=== PATIENT | male | born 1995 | race Caucasian/White ===

== ENCOUNTER 2016-11-23 22:37 | Emergency (ER) | payer BC ==
--- NOTE | 2016-11-23 23:10 | EDPHY ---
H & P Stated Complaint: Nausea, malaise, chills, fever x 2days Time Seen by Provider: 11/23/16 23:08 HPI/ROS: CHIEF COMPLAINT: Fever, body aches, sore throat HISTORY OF PRESENT ILLNESS: 21-year-old male presents emergency department complaining of fevers, body aches and sore throat that started yesterday morning. Patient reports he has been taking Tylenol and ibuprofen which helps his symptoms mildly. He denies nausea, vomiting or diarrhea, no abdominal pain. No urinary symptoms. He reports no chest pain or shortness of breath, no difficulty managing his secretions. His girlfriends sister has similar symptoms. REVIEW OF SYSTEMS: A comprehensive 10 point review of systems is otherwise negative aside from elements mentioned in the history of present illness. Source: Patient Exam Limitations: No limitations - Personal History Current Tetanus/Diphtheria Vaccine: Yes Current Tetanus Diphtheria and Acellular Pertussis (TDAP): Yes Tetanus Vaccine Date: within 5 years - Medical/Surgical History Hx Asthma: No Hx Chronic Respiratory Disease: No Hx Diabetes: No Hx Cardiac Disease: No Hx Renal Disease: No Hx Cirrhosis: No Hx Alcoholism: No Hx HIV/AIDS: No Hx Splenectomy or Spleen Trauma: No Other PMH: meningitis at 6 months old. wisdom teeth extraction - Social History Smoking Status: Never smoked - Physical Exam Exam: General: Alert, nontoxic. ENT: Tympanic membranes clear, external auditory canal, external ear and surrounding soft tissue including over the mastoid unremarkable. Nasopharynx is injected, there is no rhinorrhea. Oropharynx with erythema. There is bilateral exudate. Mild bilateral tonsillar hypertrophy. No peritonsillar abscess. No asymmetry. The uvula is midline. No elevation of tongue. There is no hoarseness. No drooling, patient has good control of their oral secretions. No trismus. No stridor. Cardiac: Tachycardic rate and rhythm. Respiratory: Lungs clear to auscultation bilaterally. Abdomen: Soft and nontender Back: No CVA tenderness Neurological: no meningismus. Skin: No rashes. Constitutional: Initial Vital Signs Temperature (C) 37.2 C 11/23/16 22:58 Heart Rate 124 H 11/23/16 22:58 Respiratory Rate 18 11/23/16 22:58 Blood Pressure 133/69 H 11/23/16 22:58 O2 Sat (%) 94 11/23/16 22:58 O2 Delivery Mode Room Air Allergies/Adverse Reactions: No Known Allergies Allergy (Unverified 11/23/16 22:58) Home Medications: Medication Instructions Recorded Penicillin V Potassium [Pen Vk] 500 mg PO BID 10 Days 11/23/16 Medical Decision Making ED Course/Re-evaluation: 21-year-old male presents with sore throat, fever and body aches that started yesterday morning, exam is significant for mild bilateral tonsillar exudate. Patient will be treated with penicillin. I have recommended alternating Tylenol with ibuprofen. Patient is given strict return precautions for drooling , unable to manage his secretions, difficulty swallowing or breathing, any other questions or concerns. Differential Diagnosis: Diagnosis considered but not limited to tonsillitis, strep pharyngitis, peritonsillar abscess, Alan's angina, influenza, viral syndrome - Data Points Laboratory Results: 11/23/16 23:05 Influenza Typ A,B (DFA) NEGATIVE FOR FLU (NEGATIVE) Medications Given: Discontinued Medications Penicillin V Potassium (Pen Vk) 500 mg PO EDNOW ONE PRN Reason: Protocol Stop: 11/23/16 23:47 Last Admin: 11/23/16 23:51 Dose: 500 mg Departure - Departure Disposition: Home, Routine, Self-Care Clinical Impression: Tonsillitis Condition: Fair Instructions: Tonsillitis (ED) Additional Instructions: Take over the counter Tylenol and ibuprofen, alternating them every 4 hours. Rest, drink plenty of fluids. Use a saline nasal rinse, humidifier at night, hot steam showers. Take your antibiotics as prescribed. Return to the ED for difficulty breathing or swallowing, drooling, chest pain, worsening symptoms or other concerns. Referrals: [facility] [Outside] - As per Instructions Prescriptions: Penicillin V Potassium [Pen Vk] 500 mg PO BID 10 Days
[2016-11-23 23:28] VITALS: BP 169/99; RESP 16; TEMP 99.3; O2SAT 95
[2016-11-23 23:43] VITALS: PULSE 97
[2016-11-23] MEDS ORDERED: PENICILLIN VK 500 MG TAB PO ONE (23:46)
[2016-11-23] MEDS ORDERED: PENICILLIN VK 250 MG TAB ONE (23:48)
== END 2016-11-24 00:09 | disposition home or self-care (01) ==
DX: J03.90 Acute tonsillitis, unspecified (principal)